=== PATIENT | female | born 1985 | race Caucasian/White ===

== ENCOUNTER → 2018-04-04 13:40 | Outpatient (CLI) | payer BC, SELFPAY ==
[2018-04-05 11:06] LABS: Chlamydia Trachomatis by PCR Negative (Negative); Neisserai gonorrhoeae by PCR Negative (Negative); Probe Check PASS; Sample Adequacy Control PASS; Specimen Processing Control PASS
== END ==
PROVIDERS: Visit Provider Obstetrics & Gynecology
DX: Z12.4 Encounter for screening for malignant neoplasm of cervix (principal); Z11.3 Encounter for screening for infections with a predominantly sexual mode of transmission
CPT/HCPCS: 87491; 87591; 88175; G0145

== ENCOUNTER → 2018-05-05 14:08 | Outpatient (CLI) | payer BC, SELFPAY ==
[2018-05-05 15:49] LABS: Color, Urine Yellow (Yellow); Glucose, Dipstick Normal (Normal); Ketone-Dipstick Negative (Negative); Leukocyte Esterase-Dipstick 25 /ul (Negative); Nitrite-Dipstick Negative (Negative); Occult Blood-Urine Negative /ul (Negative); Protein-Dipstick Negative (Negative); Specific Gravity, Urine 1.015 (1.002-1.030); Urine Bilirubin Dipstick Negative (Negative); Urine Clarity Clear (Clear); Urine Urobilinogen Normal (Normal)
[2018-05-05 15:53] LABS: Absolute Lymphocyte Count 2.32 X10^3/ul (0.83-4.51); Absolute Neutrophil Count 4.2 X10^3/uL (2.0-7.7); Basophil# 0.02 X10^3/uL; Basophil% 0.3 % (0-1); Eosinophil# 0.11 X10^3/uL; Eosinophils% 1.6 % (0-5); Hematocrit 38.2 % (37-47); Hemoglobin 13.7 g/dl (12.0-15.0); Lymphocyte # 2.32 X10^3/ul (4.0); Lymphocyte % 32.9 % (19-41); Mean Corp Hgb Conc 35.9 g/gl (32-36); Mean Corpuscular Hgb 33.5 pg (27.0-32.0); Mean Corpuscular Volume 93.4 fL (81-99); Mean Platelet Vol. 10.6 fl (6.2-12.0); Monocyte# 0.44 X10^3/uL; Monocyte% 6.2 % (0-10); Neutrophil # 4.16 X10^3/uL (2.7-7.7); Neutrophil % 58.9 % (47-70); Platelet Count 224 K/mm3 (150-450); RBC Distribution Width CV 11.2 % (11.6-14.6); RBC Distribution Width SD 38.1 fl (35.1-43.9); Red Blood Count 4.09 M/mm3 (4.2-5.4); White Blood Count 7.1 K/mm3 (4.4-11.0)
[2018-05-05 15:58] LABS: POSITIVE COUNT NO; POSITIVE DIFFERENTIAL NO; POSITIVE MORPHOLOGY NO
[2018-05-05 16:14] LABS: Thyroid Stim Hormone (TSH) 0.87 uIU/mL (0.358-3.74)
[2018-05-05 16:17] LABS: Amphetamine Urine VISTA NEGATIVE (<1000 ng/mL); Barbiturate Urine VISTA NEGATIVE (< 200 ng/mL); Benzodiazepine Urine VISTA NEGATIVE (< 200 ng/mL); Cocaine Urine VISTA NEGATIVE (< 300 ng/mL); Ecstacy Urine VISTA NEGATIVE (< 500 ng/mL); Methadone Urine VISTA NEGATIVE (< 300 ng/mL); PCP Urine VISTA NEGATIVE (< 25 ng/mL); THC Urine VISTA NEGATIVE (< 50 ng/mL); Vista UDS pH Range 6
[2018-05-05 16:53] LABS: HIV - WCH Non-Reactive (Nonreactive); Rubella IgG 204.3 IU/mL; Vitamin D,25 Hydroxy 27.6 ng/mL (29.95-100.01)
[2018-05-07 11:41] LABS: HEPATITIS B SURFACE AG Negative (Negative); Hep C Antibodies <0.1 s/co ratio (0.0-0.9)
[2018-05-09 04:35] LABS: Prenatal RPR NONREACTIVE (NONREACTIVE)
[2018-05-12 11:30] LABS: HPV APTIMA, High Risk Negative (Negative)
== END ==
PROVIDERS: Visit Provider Obstetrics & Gynecology
DX: Z34.81 Encounter for supervision of other normal pregnancy, first trimester (principal); Z12.4 Encounter for screening for malignant neoplasm of cervix
CPT/HCPCS: 36415; 80307; 81002; 82306; 84443; 85025; 86703; 86762; 86803; 87340; 88175; G0145

== ENCOUNTER → 2018-08-25 13:29 | Outpatient (CLI) | payer BC, SELFPAY ==
[2018-08-25 15:49] LABS: Glucose Challenge Gest 1H 50g 97 mg/dL (70-140)
[2018-08-25 15:54] LABS: Hematocrit 35.4 % (37-47); Hemoglobin 12.5 g/dl (12.0-15.0); Mean Corp Hgb Conc 35.3 g/gl (32-36); Mean Corpuscular Volume 96.2 fL (81-99); Mean Platelet Vol. 10.6 fl (6.2-12.0); Platelet Count 222 K/mm3 (150-450); RBC Distribution Width CV 11.3 % (11.6-14.6); RBC Distribution Width SD 38.1 fl (35.1-43.9); Red Blood Count 3.68 M/mm3 (4.2-5.4); White Blood Count 8.4 K/mm3 (4.4-11.0)
[2018-08-25 16:02] LABS: Scan Indicated on CBC? Y/N NO
[2018-08-26 15:25] LABS: Vitamin D,25 Hydroxy 26.2 ng/mL (29.95-100.01)
== END ==
PROVIDERS: Visit Provider Obstetrics & Gynecology
DX: Z34.83 Encounter for supervision of other normal pregnancy, third trimester (principal)
CPT/HCPCS: 36415; 82306; 82950; 85027; 86850; 86870

== ENCOUNTER → 2018-10-13 15:30 | Outpatient (CLI) | payer BC, SELFPAY | PROVIDERS: Visit Provider Obstetrics & Gynecology | DX: Z36.85 Encounter for antenatal screening for Streptococcus B (principal) | CPT/HCPCS: 87081 ==

== ENCOUNTER 2018-11-14 07:45 | Outpatient (CLI) | payer BC, SELFPAY ==
[2017-03-17 17:02] VITALS: BMI 25.6
[2018-11-14 08:52] VITALS: BMI 25.9
--- NOTE | 2018-12-11 18:04 | OB.TRI.NOTE ---
- Problem List (1) False labor Status: Acute (2) 40 weeks gestation of Status: Acute History of Present Illness Date of Service: 11/14/18 Was patient seen by the physician?: Yes Reason For Visit: R/O LABOR Final URSULA Source: US <20 weeks Gestational age: 40 weeks 1 day Allergies gluten Allergy (Verified 11/14/18 08:53) Food Allergy NST - FHR Rate Baby A Baseline: 135 Variability:: Moderate Accelerations:: 15 x 15 Decelerations:: None NST Reactive:: Yes FHR Category:: Category I Uterine Activity:: 3/ Impression/Plan 33yo with reactive NST in false labor d/c home return in active labor
== END 2018-11-14 11:30 | disposition home or self-care (01) ==
LOC: WPOUT 08:10 → WP 08:11
PROVIDERS: Referring Provider Obstetrics & Gynecology; Visit Provider Obstetrics & Gynecology
DX: O47.1 False labor at or after 37 completed weeks of gestation (principal); Z3A.40 40 weeks gestation of pregnancy
CPT/HCPCS: 59025; 59050; 99218; G0378

== ENCOUNTER 2018-11-14 14:00 | Inpatient (IN) | payer BC, SELFPAY ==
[2017-03-17 17:02] VITALS: BMI 25.6
[2018-11-14 08:52] VITALS: BMI 25.9
[2018-11-14 14:21] VITALS: BMI 26.5
[2018-11-14 15:32] LABS: Hematocrit 37.8 % (37-47); Hemoglobin 13.1 g/dl (12.0-15.0); Mean Corp Hgb Conc 34.7 g/gl (32-36); Mean Corpuscular Hgb 32.6 pg (27.0-32.0); Mean Platelet Vol. 10.6 fl (6.2-12.0); Platelet Count 231 K/mm3 (150-450); RBC Distribution Width CV 11.8 % (11.6-14.6); RBC Distribution Width SD 39.8 fl (35.1-43.9); Red Blood Count 4.02 M/mm3 (4.2-5.4)
[2018-11-14 15:41] LABS: Scan Indicated on CBC? Y/N NO
--- NOTE | 2018-11-14 18:30 | PCM.PN.BLA ---
Progress Note LABOR PROGRESS NOTE Arrived to bedside approximately 1644h. Informed by RN patient FD/0 station. Patient reported urge to push. Patient pushed in dorsal lithotomy for approximately 30 minutes, then did tug of war. She expressed tiring of pushing. She was encouraged to get into hands and knees and continued to passively push. After approximately 1 hour in second stage. She requested a section. I offered nitrous oxide, epidural and indicated may use vacuum however pt declined. Patient indicated [she] was done and did not desire to push further. I reviewed with patient that vaginal delivery is the safest for her and there was no indication for section. Discussed related risks for mother and baby. Reviewed how performed and use of spinal analgesia. After further discussion with patient and staff, she opted for epidural. Anesthesiologist notified and is now attempting epidural.
[2018-11-14] MEDS: Oxytocin 30 units/NS 500 ml 30 UNITS/500 ML IV.SOLN 334 UNITS IV (19:24)
--- NOTE | 2018-11-14 19:44 | PCM.OB.VAG ---
- Problem List (1) 40 weeks gestation of Status: Acute (2) (spontaneous vaginal delivery) Status: Acute Vaginal Delivery Maternal Presentation: Active Labor Amniotic Membrane Rupture Type: Spontaneous Rupture of Membrane time: 1633h Amniotic Fluid Description: Clear Final URSULA: 11/13/18 Final URSULA Source: US <20 weeks Gestational age: 40 Weeks and 1 Days Date of Procedure: 11/14/18 Pre-Operative Diagnosis: 40 1/7wga, labor Post-Operative Diagnosis: 40 1/7wga, labor Surgery/ Procedure Performed: Spontaneous Vaginal Delivery Anesthesiologist: Elieser Jensen Description of Procedure: Anesthesiology attempted epidural placement however was unsuccessful. I returned to bedside and patient exam FD/+3 station. I offered patient a pudendal block and she was agreeable, however, a few minutes later she reported significant pressure and need to delivery her infant. Patient was FD/+4 station and pushed over the next several minutes to deliver a vigorous female . The infant was placed on the maternal abdomen and further attended by nursery personnel. The cord was doubly clamped and cut after approximately 4 minutes of life. Cord blood was obtained. The placenta delivered spontaneously and appeared intact on inspection. A first degree perineal laceration was reapproximated with 3-0 Vicryl under local analgesia with 1% lidocaine - 20cc. Fundus was firm and the umbilicus. Sponge and needle counts were correct x 2. Presentation: Vertex, LOP Placental Delivery Description: Spontaneous Placenta Disposition: [facility] Cord Vessel Description: 3 Vessels Nuchal Cord Compression: Without compression Cord Entanglement: None Estimated Blood Loss: 250 ml A gender: Female (1 minute): 8 (5 minute): 9 Episiotomy Description: None Laceration: Midline, Perineal Extension/lac, 1st degree Medications given after delivery: IV Pitocin Complications: None
[2018-11-14] MEDS: Oxytocin 30 units/NS 500 ml 30 UNITS/500 ML IV.SOLN 167 UNITS IV (19:54)
--- NOTE | 2018-11-14 19:55 | DCINST_ITS ---
Discharge Diet: No Restrictions Discharge Activity: Return to Normal Activity, May Take a Tub Bath May resume sexual activity in: 6 weeks Lifting Restrictions: 20-25 lb Call your doctor if you observe: Fever of 101 or Higher, Inability to urinate, Inability to have a bowel movement, Using more than one pad per hour, Shortness of breath, Chest pain, Calf discomfort, Uncontrolled pain Suture Line Care: Avoid Pulling/Pushing Cleanse incision/area with: Soap & Water Additional Instructions: If you experience any of the following, contact your healthcare provider. * Bleeding that soaks a pad every hour for 2 hours * Fever 100.4 or higher * Unrelieved incision or abdominal pain * Swelling, redness, discharge or bleeding from your incision or episiotomy site * Your incision begins to separate * Problems urinating (including inability to urinate or burning while urinating). * Visual changes * Severe headache * Flu-like symptoms * Pain or redness in one of both of your breasts * Pain, warmth, tenderness or swelling in your legs, especially the calf area * Frequent nausea and vomiting * Symptoms of depression or anxiety If you experience any of the following, call 911 or go to the nearest Emergency Room. * Chest pain * Problems breathing * Seizure activity * Partial or complete paralysis of a body part, slurred speech, weakness or drooping of the face, or a sudden inability to walk or hold your balance Allergies/Adverse Reactions: Allergies gluten Allergy (Verified 11/14/18 08:53) Food Allergy Medications to take at Discharge Vit No.130/Iron/Folic [ Tablet] 1 each PO DAILY 03/17/17 Please Follow Up With: Rand White MD When: 6 weeks Primary Care Physician: Care Physician,No Primary [Primary Care Provider] - Test Results: Test results from this visit will be discussed in further detail at your follow- up appointment, if applicable.
[2018-11-14] MEDS: Acetaminophen 325 MG Tablet PO (22:52)
[2018-11-14 23:21] VITALS: BP 132/68; PULSE 87; RESP 16; O2SAT 97
[2018-11-15 03:06] VITALS: BP 114/54; PULSE 80; RESP 16; TEMP 36.8; O2SAT 97
[2018-11-15] MEDS: Ibuprofen 600 MG Tablet PO ×2 (03:17→10:26)
[2018-11-15 08:30] VITALS: BP 117/53; PULSE 89; RESP 16; TEMP 36.6; O2SAT 98
[2018-11-15] MEDS: Acetaminophen 325 MG Tablet PO (08:50)
--- NOTE | 2018-11-15 08:53 | PCM.PN.OB ---
Patient Problems: Active and Suspected Problems 40 weeks gestation of (Acute) (spontaneous vaginal delivery) (Acute) Subjective: Patient without complaints. Desires released to home later today if baby is able to go home. - Physical Exam Vital Signs Temp Pulse Resp BP Pulse Ox 98.2 F 80 16 114/54 L 97 11/15/18 03:06 11/15/18 03:06 11/15/18 03:06 11/15/18 03:06 11/15/18 03:06 Oxygen Delivery Method Room Air Weight: 145 lb Body Mass Index (BMI) 26.5 Intake and Output for Last 24 Hours 11/13/18 11/14/18 11/15/18 23:59 23:59 23:59 Output Total 700 / 700 Balance -700 / -700 Laboratory Tests Past 24 Hrs 11/14/18 11/14/18 15:00 15:00 WBC 11.0 RBC 4.02 L Hgb 13.1 Hct 37.8 MCV 94.0 MCH 32.6 H MCHC 34.7 RDW 11.8 RDW Differential 39.8 Plt Count 231 MPV 10.6 Blood Type O NEGATIVE Antibody Screen POSITIVE H Antibody Identification ANTI-D Medical Necessity - Tobacco Use Smoking Status: Never smoker Assessment/Plan All Active Problems 40 weeks gestation of (Acute) (spontaneous vaginal delivery) (Acute) Doing well day #1. Home-going instructions given anticipation of release later today.
[2018-11-15 12:10] VITALS: BP 114/66; PULSE 79; RESP 18; TEMP 36.9; O2SAT 97
[2018-11-15] MEDS: Prenatal Vits Tablet 1 TABLET PO (12:16)
[2018-11-15 16:00] VITALS: BP 108/64; PULSE 72; RESP 18; TEMP 36.8; O2SAT 98
[2018-11-15 19:40] VITALS: BP 108/73; PULSE 74; RESP 16; TEMP 36.6; O2SAT 100
--- NOTE | 2018-11-16 15:52 | NURSING ---
[facility]
--- NOTE | 2018-11-19 16:26 | NURSING ---
left voicemail for follow up phone call
== END 2018-11-15 20:10 | disposition home or self-care (01) | DRG 807 ==
PROVIDERS: Obstetrics & Gynecology; Admitting Provider Obstetrics & Gynecology; Referring Provider Obstetrics & Gynecology; Visit Provider Obstetrics & Gynecology
DX: O70.0 First degree perineal laceration during delivery (principal); Z37.0 Single live birth; Z3A.40 40 weeks gestation of pregnancy
CPT/HCPCS: 59025; 59050; 85027; 86850; 86870; 86900; 99218; G0378; J3490

== ENCOUNTER → 2020-11-04 16:25 | Outpatient (CLI) | payer BC, SELFPAY ==
[2020-11-09 15:17] LABS: HPV APTIMA, High Risk Negative (Negative)
== END ==
PROVIDERS: Visit Provider Obstetrics & Gynecology
DX: Z12.4 Encounter for screening for malignant neoplasm of cervix (principal)
CPT/HCPCS: 87624; 88175; G0145